=== PATIENT | female | born 1980 | race Caucasian/White ===

== ENCOUNTER 2020-10-15 04:15 | Emergency (ER) | payer MEDICAID, SELFPAY ==
[2020-10-15 04:18] VITALS: BP 138/90; PULSE 70; RESP 16; TEMP 36.4; O2SAT 98; BMI 45.7
--- NOTE | 2020-10-15 04:34 | ED.VIS.GEN ---
History of Present Illness Chief Complaint: Back Informant: Patient Narrative: For the last 3 days the patient has had right lower back pain. She does not member doing anything. When she bends or twist she has pain in her right lower back. Current severity is moderate. Hurts by laying flat bending or twisting or bending over. Relieved by standing straight up. She has been using Tylenol ice and heat as well as BenGay. She states she cannot function like this needs some stronger for pain. Patient is 35 weeks . She has had no complications with her . Denies any urinary symptoms. Past Medical History - Allergies and Home Meds Allergies/Adverse Reactions: Allergies Penicillins [PCN] Allergy (Verified 10/15/20 04:16) Hives Primary Care Physician: Care Physician,No Primary [Primary Care Provider] - Prior records reviewed: Yes Past Medical History: - - Reviewed Surgical History: - - Reviewed Smoking Status: Never smoker Alcohol: None Drugs: None Review of Systems General: Denies: Chills, Fever, Sweats Eyes: Denies: Visual changes - bilaterally, Diplopia ENT: Denies: Rhinorrhea, Sore throat Cardiovascular: Denies: Chest pain, Palpitations Respiratory: Denies: Dyspnea, Cough, Dyspnea on exertion Gastrointestinal: Denies: Abdominal pain, Nausea, Vomiting, Diarrhea, Melena, Hematochezia Genitourinary: Denies: Dysuria, Hematuria, Frequency Musculoskeletal: Reports: Back pain. Denies: Extremity Pain Skin: Denies: Rash, Wounds Neurological: Denies: Headache, Weakness, Numbness Physical Exam Vital Signs/Narrative: Vital Signs Temp Pulse Resp BP Pulse Ox 10/15/20 04:18 97.6 F L 70 16 138/90 H 98 General: Well nourished, Well developed, No Acute Distress Head: Normocephalic, Atraumatic Eyes: Perrl, EOMI ENT: Moist mucous membranes, No rhinorrhea Neck: Supple, Nontender Cardiovascular: Regular rate, Regular rhythm, No murmurs Respiratory: No distress, CTA bilaterally, Chest nontender Abdomen: Soft, Nontender, Normal bowel sounds, - - Patient appears Back: Normal Inspection, - - Point right lower paraspinal tenderness. Decreased range of motion secondary pain. Negative for: CVA tenderness, Spinal tenderness Extremities: Nontender, No edema Skin: Normal color, No rash Neurological: Alert, Oriented x3, Cranial nerves II-XII grossly intact, Normal Strength, Normal Sensation Psychological: Normal affect, Normal Mood Diagnostic/Tx/Re-eval - Medical Decision Making This time I feel the patient has musculoskeletal back strain. I discussed with her the low suspicion for kidney infection. Patient agrees. Will be given a short course of Percocet. She understands the risk of doing so in however she is in so much pain that she cannot bear doing other treatments at this time. Will be given a short course and follow-up as an outpatient. ED Disposition - Plan for ED Patient: Disposition: Home or Assisted Living Diagnosis: Back pain Instructions: Back Pain During Prescriptions: Oxycodone HCl/Acetaminophen [Percocet 5/325] 1 - 2 tab PO Q6H PRN PRN 3 Days #12 tab PRN Reason: Pain Prescription Printed Referrals: Care Physician,No Primary [Primary Care Provider] -
== END 2020-10-15 04:43 | disposition home or self-care (01) ==
LOC: ED 04:40
PROVIDERS: Emergency Provider Emergency Medicine
DX: M54.5 Low back pain (principal); O99.891 Other specified diseases and conditions complicating pregnancy; Z3A.35 35 weeks gestation of pregnancy
CPT/HCPCS: 99282

== ENCOUNTER → 2020-10-18 17:48 | Outpatient (CLI) | payer MEDICAID, SELFPAY ==
[2020-10-15 04:18] VITALS: BMI 45.7
[2020-10-18 18:02] LABS: Hematocrit 35.5 % (37-47); Hemoglobin 11.3 g/dL (12.0-15.0); Mean Corp Hgb Conc 31.8 g/dL (32-36); Mean Corpuscular Volume 87.9 fL (81-99); Mean Platelet Vol. 11.7 fl (6.2-12.0); Platelet Count 229 K/mm3 (150-450); RBC Distribution Width CV 15.2 % (11.6-14.6); RBC Distribution Width SD 48.3 fl (35.1-43.9); Red Blood Count 4.04 M/mm3 (4.2-5.4); White Blood Count 11.2 K/mm3 (4.4-11.0)
[2020-10-18 18:41] LABS: ALB/GLOB Ratio 0.6 RATIO (0.9-2.4); AST(SGOT) 8 U/L (15-37); Alanine Aminotransfer ALT/SGPT 13 U/L (13-56); Albumin, Serum 2.5 g/dL (3.2-5.0); Alkaline Phosphatase 104 U/L (45-117); Anion Gap 7 (5-15); BUN 10 mg/dL (7-18); BUN/Creat Ratio 15.6 RATIO (10-20); Calcium,Total 8.6 mg/dL (8.5-10.1); Chloride 105 mmol/L (98-107); Creatinine, Serum 0.64 mg/dL (0.55-1.02); EST Glomerular Filtration Rate 110 mL/min (>60); Est Glom Filt Rate - Afr Amer 133 mL/min (>60); Globulin 4.4 g/dL (2.2-4.2); Glucose 75 mg/dL (74-106); LDH 123 U/L (84-246); Potassium 4.2 mmol/L (3.5-5.1); Protein, Total 6.9 g/dL (6.4-8.2); Protein, Urine (Random) 25.9 mg/dL (<11.9); Protein:Creat Ratio 223 mg/g CRE (0-200); Sodium Level 136 mmol/L (136-145)
== END ==
LOC: LAB 17:49 → LABSPEC 10-19 07:35
PROVIDERS: Referring Provider Obstetrics & Gynecology; Visit Provider Obstetrics & Gynecology
DX: Z34.83 Encounter for supervision of other normal pregnancy, third trimester (principal)
CPT/HCPCS: 36415; 80053; 82570; 83615; 84156; 85027

== ENCOUNTER 2020-10-20 09:45 | Inpatient (IN) | payer MEDICAID, SELFPAY ==
[2020-10-20] VITALS (16 sets, daily range): BP systolic 123–161; BP diastolic 68–95; PULSE 50–78; RESP 18; TEMP 36.7–37.1; O2SAT 97–99; BMI 46.7
[2020-10-20] MEDS: Lactated Ringers 1,000 ML 50 ML IV (09:20)
--- NOTE | 2020-10-20 09:51 | HP.PCM_ITS ---
History and Physical Date of Admission: 10/20/20 ACOG ANTEPARTUM RECORD - HISTORY AND PHYSICAL (10/20/2020) Name: ROSALIA SHORT History of This : This is a 40-year-old Ab1 who presents to labor and delivery with what appears to be active labor. care has been uneventful except for a transfer from [facility] at 33 weeks and a history of delivery at 35 weeks gestation. OB Physician: IGNACIO 's Physician: DR. REYNOLD FISHER ...................................................................... : 1980 Age: 40 [address]: [address] [place] [address] Phone: [phone] Insurance Carrier: [employer] [id number] Emergency Contact: MINA SHORT/SPOUSE [phone] ...................................................................... Final THEO: 11/26/20 By Ultrasound: PARITY: (G-Total Pregnancies P-Fullterm,Premature,Induced AB,Spont AB, Ectopics, Multiple,Living) THEO CONFIRMATION: By LMP: 01/25/20 Final THEO: 11/26/20 OB PROBLEM LIST: Hx-chickenpox,anxiety/dep, PCOS, infertility, constip. bronchitis. Transfer from [facility] at 33 weeks. Allergic Penicillins. AMA Hx of 35wk PTD ALLERGIES: NKA Penicillins Hives and/or rash MEDICATIONS: One A Day Women's DHA 28 mg iron-800 mcg oral pack One pill by mouth once a day Pepcid 20 mg tablet Two pills by mouth twice a day Vitamin D3 125 mcg (5,000 unit) tablet One pill by mouth once a day SOCIAL HISTORY: Smoking - denies smoking Alcohol Use - None Diet - balanced Diet and water intake- main drink- several quarts. Exercise - minimal and not motivated Enc to walk 15-20 min day. Employer - unemployed Job Description - housewife Illicit Drug Use - None Sexual Activity - Residence - lives with and rent home Place of - [place] Spouse-Sig Other Name - Mina Spouse-Sig Other Occupation - hyperbaric welder diver Spouse-Sig Other Phone No - [phone] PRIOR DELIVERY HISTORY __ DEL DATE GEST LAB WT LB WT OZ TYPE ANES LABOR TX Sep 17 6 0 0 0 Sab None No February 35 24 5 15 Vag Epidural No Aug 26 38 6 9 6 Vag Epidural No ANTEPARTUM FLOW CHART VISIT GE RTC FU F F GA U U DATE WK MD WKS HT PN HR M SS BP ED WT GA GL D EF ST __ ____ ___ __ __ ___ __ __ __ ___ __ __ __ ___ __ 05 Oct MIHIR 1 35 V + + 152/98 1+ 283 tr - ANTEPARTUM NOTE(S): Oct 18 2020: see note COMPREHENSIVE ANTEPARTUM NOTE(S): Oct 18 2020: Rosalia is here for visit. Transfer of care to our facility. Relates that she has been having excruciating back pain. Points to R flank area around to abdomen. States this pain is getting much worse. Initially it was more at night but now it is all the time. She also reports h/a today. B/P taken by me was 152/98. LMT Oct 18 2020: 40yo at 34wk.3d with FINAL THEO: 11/26/20 by 7wk u/s arrives [facility] L [facility], she lives in [place]. PNP on records wnl, 1hr GTT 136 wnl. Previously with PTD at 35wk 1999 and Term 2012, no indication for progesterone. AMA, no indication for ASA at this time since it has not been started >26wk. Back pain seen in ER, given percocet has taken a few. Discussed risk of percocet in , pt states understanding. Back pain appears to be MSK, discussed warm compresses. Pt with elevated BP today, asymptomatic, for HELLP labs today. Last growth at [facility] 27wk 1539g 87% AC >97% HC 43%. Agrees to 39wk delivery based on above. For Growth u/s at next visit. 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 Mina, her husb is a hyperbaric welder diver. Rosalia is a transfer from [facility] as their L closed. She's a lifetime non smoker, non drinker w no street drug use past or present. She is allergic to penicillins. Her diet is balanced though she limits dairy, w no caffeine and 2-3 l of water daily. Exercise is minimal- enc to walk 15-20 min qd. Meds include a dye-free vit, Colace, Pepcid and Vit D 3. Past medical hx- anxiety/dep, PCOS, infertility, chickenpox, bronchitis. constipation of pg. Rosalia was on buspirone but DC' ed it upon realizing pg and feels well. Stress level is 1/5. Genetic Testing done prev w no high risk findings. Warning signs in pg discussed as well as wearing seatbelt low on her abd, importance of protein in her diet, reaching the office after hours w understanding voiced. Rosalia did the WP virtual tour. She needs proof of pg for WIC. Enc to get a flu shot. Enc to call w any concerns. Visit took one hour. Lisa SURESH. REVIEW OF SYSTEMS: GENERAL - Denies fever, or chills SKIN - Denies rash, new skin lesions, or change in moles EYES - Denies blurred vision, or change in visual acuity EARS - Denies ear pain, or difficulty hearing NOSE - Denies nasal congestion, discharge, or bleeding MOUTH - Denies sore throat, or difficulty swallowing NECK - Denies pain or swelling RESPIRATORY - Denies shortness of breath, cough, wheezing CARDIOVASCULAR - Denies palpitations, chest pain, orthopnea, PND, peripheral edema, syncope or claudication GASTROINTESTINAL - Denies nausea, vomiting, diarrhea, constipation, Denies abdominal pain, melena and or bright red blood GENITOURINARY - Denies dysuria, frequency of urination, urgency, or hesitancy MUSCULOSKELETAL - Denies joint or muscle pain, or back pain NEUROLOGICAL - Denies localized numbness, weakness, or tingling PSYCHIATRIC - Denies depression, anxiety, substance abuse or suicide attempts ENDOCRINE - Denies heat or cold intolerance, weight loss or gain, increasing thirst HEMATO-IMMUNOLOGIC - Denies easy bruising, bleeding, oral ulcerations or recurrent infections GENETICS SCREENING: Age 35+ years: Yes Thalassemia: No Neural Tube Defect: No Down Syndrome: No CARMELO-SACHS: No Sickle Cell Disease: No Hemophilia: No Musc. Dystrophy: No Cystic Fibrosis: No-declines screening Karnes Chorea: No Mental Retardation: No Fragile X: No Other genetic: No Other defects: No SABs/still births: Yes x1 Drugs since LMP: Yes INFECTION HISTORY: High risk AIDS: No High risk Hepatitis: No Exposed to TB: No Exposed to Herpes: No Rash/viral illness since LMP: No History of STD: No MENSTRUAL HISTORY: *Menses Regularity: IrregularFrequency: variableBCP's at Conception: NoMenarche (Age Onset): 17* PAST SUMMARY: PARITY: 1. Total Pregnancies............ 4 2. Full Term Pregnancies........ 1 3. Premature.................... 1 4. Abortions - Induced.......... 0 5. Abortions - Spontaneous...... 1 6. Ectopics..................... 0 7. Multiple Births.............. 0 8. Living Children.............. 2 PAST #1: Date of :.................. 02/21/00 Gestation Weeks:................ 35 Length of labor(hours):......... 24 Sex:............................ F Weight-lbs:............... 5 Weight-oz:................ 15 Type of Delivery:............... Vag Type of Anesthesia:............. Epidural Place of Delivery:.............. [place] Treatment of Labor?:.... No Comment: NO PAST #2: Date of :.................. 09/13/05 Gestation Weeks:................ 6 Length of labor(hours):......... 0 Sex:............................ UNKNOWN Weight-lbs:............... 0 Weight-oz:................ 0 Type of Delivery:............... Sab Type of Anesthesia:............. None Place of Delivery:.............. HOME Treatment of Labor?:.... No Comment: PAST #3: Date of :.................. 08/26/13 Gestation Weeks:................ 38 Length of labor(hours):......... 6 Sex:............................ M Weight-lbs:............... 9 Weight-oz:................ 6 Type of Delivery:............... Vag Type of Anesthesia:............. Epidural Place of Delivery:.............. [facility] Treatment of Labor?:.... No Comment: NO PHYSICAL EXAMINATION General Appearence: 40 yo female in no acute distress Vital Signs: AF, VSS Heart: RRR without rubs or gallops Lungs: CTA x 2 Breasts: deferred Abdomen: gravid Pelvis: Cervix: 3/80 with bulgy bag of water Presentation: cephalic Station: -1 Fetus: Size: AGA Movement: present Heart: present Labs for : ROSALIA SHORT since 03/01/2020 ORDER DATEIN DESCRIPTION VALUE UNITS RANGE A+ COMMENT LDH 10/18/20 NOTE Original Ordering Provider: Lakeshia Fisher LDH 123 U/L 84-246 Reviewed by [facility] METABOLIC PROFIL 10/18/20 NOTE Original Ordering Provider: Lakeshia Fisher GLU 75 mg/dL 74-106 Please note revised GLUCOSE reference range effective 11/15/2017. BUN 10 mg/dL 7-18 CREAT,SERUM 0.64 mg/dL 0.55-1.02 The validity of the calculated GFR AND GFRAA in patients over 70 years has not been determined. Clinical correlation is essential. EST GFR 110 mL/min >60 Non- GFR Calc EST GFR - AA 133 mL/min >60 GFR Calc BUN/CRE 15.6 RATIO 10-20 T PROT 6.9 g/dL 6.4-8.2 ALB 2.5 g/dL 3.2-5.0 L GLOB 4.4 g/dL 2.2-4.2 H A/G 0.6 RATIO 0.9-2.4 L CA 8.6 mg/dL 8.5-10.1 AST 8 U/L 15-37 L ALK P 104 U/L 45-117 ALT 13 U/L 13-56 T BILI 0.20 mg/dL 0.20-1.00 For patients on eltrombopag therapy, use of Dimension Pollock TBIL is not recommended. NA 136 mmol/L 136-145 K 4.2 mmol/L 3.5-5.1 CL 105 mmol/L 98-107 CO2 24.0 mmol/L 21.0-32.0 GAP 7 5-15 Reviewed by LAKESHIA PROTEIN+CREATININE RATIO,URINE 10/18/20 NOTE Original Ordering Provider: Lakeshia Fisher UR CREAT 116.00 mg/dL NO RANGE EST. PROTEIN,UR.RAN. 25.9 mg/dL <11.9 H PROT:CRE RATIO 223 mg/g CRE 0-200 H Reviewed by LAKESHIA CBC-COMPLETE BLOOD CNT NO DIFF 10/18/20 NOTE Original Ordering Provider: Lakeshia Fisher WBC 11.2 K/mm3 4.4-11.0 H RBC 4.04 M/mm3 4.2-5.4 L HGB 11.3 g/dL 12.0-15.0 L HCT 35.5 % 37-47 L MCV 87.9 fL 81-99 MCH 28.0 pg 27.0-32.0 MCHC 31.8 g/dL 32-36 L RDW CV 15.2 % 11.6-14.6 H RDW SD 48.3 fl 35.1-43.9 H PLT 229 K/mm3 150-450 MPV 11.7 fl 6.2-12.0 Reviewed by LAKESHIA CBC w/Diff 05/03/20 White Blood Cell Count 10.2 thous/mcl 3.8-10.8 Red Blood Cell Count 4.07 mill/mcl 3.90-5.20 Hemoglobin 11.7 g/dl 12.0-15.6 Hematocrit 33.7 % 35.0-46.0 MCV 82.9 FL 80.0-100.0 MCH 28.7 PG 27.0-33.0 MCHC 34.7 % 32.0-36.0 RDW 16.8 % 9.0-15.0 Platelet Count 213 thous/mcl 150-450 Reviewed by LAKESHIA Other 05/03/20 Unusual lab Panorama Low Risk Reviewed by LAKESHIA Initial OB Labs 05/03/20 Blood Type O Rh Type positive w Antibody Screen negative Negative Hemoglobin Initial OB 11.7 Hematocrit Initial OB 33.7 PLT 213 Rubella 15.3 immune Immune VDRL non reactive Non Reactive HBsAg not detected Negative HIV Test non reactive Negative w Reviewed by LAKESHIA Urine Culture 05/03/20 Urine Culture normal urogenital cristopher No growth Reviewed by LAKESHIA LEONE-Chlamydia 05/03/20 Chlamydia not detected Negative GC not detected No Growth Reviewed by LAKESHIA PAP Smear 04/18/20 PAP Test negative for squamous lesion or malignancy Normal Reviewed by LAKESHIA Impression /Plan: 34+ week intrauterine and apparent active labor. Steroids will be given. Preparations in progress for possible delivery.
[2020-10-20] MEDS: Oxytocin 30 units/NS 500 ml 30 UNITS/500 ML IV.SOLN 334 UNITS IV (10:09)
[2020-10-20 10:15] LABS: Absolute Neutrophil Count 8.6 X10^3/uL (2.0-7.7); Basophil# 0.04 X10^3/uL; Basophil% 0.4 % (0-1); Eosinophil# 0.03 X10^3/uL; Eosinophils% 0.3 % (0-5); Hematocrit 35.8 % (37-47); Hemoglobin 11.7 g/dL (12.0-15.0); Lymphocyte % 15.5 % (19-41); Mean Corp Hgb Conc 32.7 g/dL (32-36); Mean Corpuscular Volume 85.6 fL (81-99); Mean Platelet Vol. 12.5 fl (6.2-12.0); Monocyte# 0.48 X10^3/uL; Monocyte% 4.4 % (0-10); NRBC Flagged by Analyzer 0 % (0-5); Neutrophil # 8.64 X10^3/uL (2.7-7.7); Neutrophil % 78.9 % (47-70); Platelet Count 234 K/mm3 (150-450); RBC Distribution Width CV 15.1 % (11.6-14.6); RBC Distribution Width SD 47.1 fl (35.1-43.9); Red Blood Count 4.18 M/mm3 (4.2-5.4); White Blood Count 10.9 K/mm3 (4.4-11.0)
--- NOTE | 2020-10-20 10:28 | PCM.OPRPT ---
Vaginal Delivery Maternal Presentation: Active Labor Amniotic Membrane Rupture Type: Spontaneous Amniotic Fluid Description: - - Unruly Final THEO: 11/26/20 Final THEO Source: US <20 weeks Gestational age: 34 Weeks and 5 Days [place] doctor who attended delivery (if requested by OB): DaveChrystal - 34+ weeks gestation Date of Procedure: 10/20/20 Pre-Operative Diagnosis: 34+ week IUP Post-Operative Diagnosis: 34+ Week IUP, Possible Placental Abruption, Precipitous Delivery Type of Anesthesia: None Description of Procedure: Spontaneous precipitous vaginal delivery of a viable female with Apgars of 9/9 from an occiput anterior presentation with port wine colored amniotic fluid and potentially 15% of the placenta abrupted. No episiotomy or lacerations. Venous and arterial cord gases obtained. Delivery physician: Christiano Martinez MD. Presentation: Vertex Placental Delivery Description: Spontaneous Placenta Disposition: Sent to Pathology Percentage of Placenta Abruption: 15 Cord Vessel Description: 3 Vessels Cord Gases drawn per routine: ABG, VBG Cord Entanglement: None Estimated Blood Loss: 250 cc A gender: Female (1 minute): 9 (5 minute): 9 Episiotomy Description: None Laceration: None Medications given after delivery: IV Pitocin Complications: None
--- NOTE | 2020-10-20 10:33 | DCINST_ITS ---
<Christiano Martinez - Last Filed: 10/20/20 10:33> Discharge Diet: No Restrictions Discharge Activity: May Shower, May Take a Tub Bath May resume sexual activity in: 4-6 weeks Additional Activity Instructions:: Nothing in the vagina for 4-6 weeks. You may return to work/school in 6 weeks. Call your doctor if you observe: Inability to urinate, Inability to have a bowel movement, Using more than one pad per hour Additional Instructions: If you experience any of the following, contact your healthcare provider. * Bleeding that soaks a pad every hour for 2 hours * Fever 100.4 or higher * Unrelieved incision or abdominal pain * Swelling, redness, discharge or bleeding from your incision or episiotomy site * Your incision begins to separate * Problems urinating (including inability to urinate or burning while urinating). * Visual changes * Severe headache * Flu-like symptoms * Pain or redness in one of both of your breasts * Pain, warmth, tenderness or swelling in your legs, especially the calf area * Frequent nausea and vomiting * Symptoms of depression or anxiety If you experience any of the following, call 911 or go to the nearest Emergency Room. * Chest pain * Problems breathing * Seizure activity * Partial or complete paralysis of a body part, slurred speech, weakness or drooping of the face, or a sudden inability to walk or hold your balance Allergies/Adverse Reactions: Allergies Penicillins [PCN] Allergy (Verified 10/20/20 09:39) Hives Medications to take at Discharge Cholecalciferol (Vitamin D3) [D3-50] 1 tab PO QWEEK 10/15/20 Docusate Sodium [Colace] 100 mg PO BID 10/15/20 Esomeprazole Magnesium [Nexium] 20 mg PO DAILY 10/15/20 Please Follow Up With: nÁgel Antony MD - [phone] When: Call to make an appointment with your doctor in 6 weeks. Primary Care Physician: Care Physician,No Primary [Primary Care Provider] - Test Results: Test results from this visit will be discussed in further detail at your follow- up appointment, if applicable. <Ángel Antony - Last Filed: 10/21/20 07:26> Additional Instructions: If you experience any of the following, contact your healthcare provider. * Bleeding that soaks a pad every hour for 2 hours * Fever 100.4 or higher * Unrelieved incision or abdominal pain * Swelling, redness, discharge or bleeding from your incision or episiotomy site * Your incision begins to separate * Problems urinating (including inability to urinate or burning while urinating). * Visual changes * Severe headache * Flu-like symptoms * Pain or redness in one of both of your breasts * Pain, warmth, tenderness or swelling in your legs, especially the calf area * Frequent nausea and vomiting * Symptoms of depression or anxiety If you experience any of the following, call 911 or go to the nearest Emergency Room. * Chest pain * Problems breathing * Seizure activity * Partial or complete paralysis of a body part, slurred speech, weakness or drooping of the face, or a sudden inability to walk or hold your balance Test Results: Test results from this visit will be discussed in further detail at your follow- up appointment, if applicable.
--- NOTE | 2020-10-20 10:33 | PCM.DCVAG ---
<Christiano Martinez - Last Filed: 10/20/20 10:33> Discharge Diet: No Restrictions Discharge Activity: May Shower, May Take a Tub Bath May resume sexual activity in: 4-6 weeks Additional Activity Instructions:: Nothing in the vagina for 4-6 weeks. You may return to work/school in 6 weeks. Call your doctor if you observe: Inability to urinate, Inability to have a bowel movement, Using more than one pad per hour Additional Instructions: If you experience any of the following, contact your healthcare provider. Bleeding that soaks a pad every hour for 2 hours Fever 100.4 or higher Unrelieved incision or abdominal pain Swelling, redness, discharge or bleeding from your incision or episiotomy site Your incision begins to separate Problems urinating (including inability to urinate or burning while urinating). Visual changes Severe headache Flu-like symptoms Pain or redness in one of both of your breasts Pain, warmth, tenderness or swelling in your legs, especially the calf area Frequent nausea and vomiting Symptoms of depression or anxiety If you experience any of the following, call 911 or go to the nearest Emergency Room. Chest pain Problems breathing Seizure activity Partial or complete paralysis of a body part, slurred speech, weakness or drooping of the face, or a sudden inability to walk or hold your balance Allergies/Adverse Reactions: Allergies Penicillins [PCN] Allergy (Verified 10/20/20 09:39) Hives Medications to take at Discharge Cholecalciferol (Vitamin D3) [D3-50] 1 tab PO QWEEK 10/15/20 Docusate Sodium [Colace] 100 mg PO BID 10/15/20 Esomeprazole Magnesium [Nexium] 20 mg PO DAILY 10/15/20 Please Follow Up With: Ángel Antony MD - [phone] When: Call to make an appointment with your doctor in 6 weeks. Primary Care Physician: Care Physician,No Primary [Primary Care Provider] - Test Results: Test results from this visit will be discussed in further detail at your follow-up appointment, if applicable. <Ángel Antony - Last Filed: 10/21/20 07:26> Additional Instructions: If you experience any of the following, contact your healthcare provider. Bleeding that soaks a pad every hour for 2 hours Fever 100.4 or higher Unrelieved incision or abdominal pain Swelling, redness, discharge or bleeding from your incision or episiotomy site Your incision begins to separate Problems urinating (including inability to urinate or burning while urinating). Visual changes Severe headache Flu-like symptoms Pain or redness in one of both of your breasts Pain, warmth, tenderness or swelling in your legs, especially the calf area Frequent nausea and vomiting Symptoms of depression or anxiety If you experience any of the following, call 911 or go to the nearest Emergency Room. Chest pain Problems breathing Seizure activity Partial or complete paralysis of a body part, slurred speech, weakness or drooping of the face, or a sudden inability to walk or hold your balance Test Results: Test results from this visit will be discussed in further detail at your follow-up appointment, if applicable.
--- NOTE | 2020-10-20 11:15 | NURSING ---
baby transferred to scn at this time, see transport papers for any details
[2020-10-20 11:41] LABS: Red Blood Cells-Urine 0 SEEN /hpf (0-5)
[2020-10-20 11:53] LABS: Color, Urine Yellow (Yellow); Glucose, Dipstick Normal (Normal); Ketone-Dipstick Negative (Negative); Leukocyte Esterase-Dipstick 100 /ul (Negative); Nitrite-Dipstick Negative (Negative); Occult Blood-Urine 25 /ul (Negative); Protein-Dipstick 30 mg/dl (Negative); Urine Bilirubin Dipstick Negative (Negative); Urine Clarity Cloudy (Clear); Urine Urobilinogen Normal (Normal)
[2020-10-20 11:55] LABS: Squamous Epithelial Cells - UA 25-50 SEEN /hpf (5-10); White Blood Cells 0-5 SEEN /hpf (0-5)
[2020-10-20 11:56] LABS: Bacteria 3+ /hpf (None Seen); Mucous, Urine 1+ /hpf (<or=2+); Protein, Urine (Random) 55.2 mg/dL (<11.9); Protein:Creat Ratio 241 mg/g CRE (0-200)
[2020-10-20 12:03] LABS: AST(SGOT) 11 U/L (15-37); Alanine Aminotransfer ALT/SGPT 11 U/L (13-56); Creatinine, Serum 0.69 mg/dL (0.55-1.02); EST Glomerular Filtration Rate 101 mL/min (>60); Est Glom Filt Rate - Afr Amer 122 mL/min (>60); Uric Acid 5.4 mg/dL (2.6-6.0)
[2020-10-20 12:11] LABS: International Normalized Ratio 1.1; Partial Thromboplast Time 27.4 Seconds (24.1-36.2); Prothrombin Time (Protime)PT. 13.4 SECONDS (11.7-14.9)
[2020-10-20] MEDS: 0.9% Saline Lock 10 ML Syringe IV (12:25)
[2020-10-21 00:27] VITALS: BP 117/65; PULSE 82; RESP 15; TEMP 36.4
[2020-10-21 05:00] VITALS: BP 133/83; PULSE 70; RESP 18; TEMP 36.6
[2020-10-21] MEDS: Ibuprofen 600 MG Tablet PO (05:58)
--- NOTE | 2020-10-21 07:25 | PCM.PN.OB ---
Subjective: No overnight complaints. Pain well controlled. Did not sleep well overnight secondary to hospital setting. - Physical Exam Vitals/I&O's: Vital Signs Temp Pulse Resp BP Pulse Ox 97.9 F 70 18 133/83 H 98 10/21/20 05:00 10/21/20 05:00 10/21/20 05:00 10/21/20 05:00 10/20/20 12:02 Oxygen Delivery Method Room Air Weight: 281 lb 3.2 oz Body Mass Index (BMI) 46.7 Intake and Output for Last 24 Hours 10/19/20 10/20/20 10/21/20 23:59 23:59 23:59 Intake Total 1340.83 / 1340.83 Output Total 450 / 450 Balance 890.83 / 890.83 General: Alert, Oriented x3, Cooperative, No apparent distress HEENT: Atraumatic, PERRLA, Normocephalic Oral: Moist Mucosa Neck: Supple, No JVD Abdomen: Soft, Non Tender, - - Uterus firm and below umbilicus Extremities: No clubbing, No cyanosis, No edema Neurological: Neuro grossly intact Psych/Mental Status: Normal Affect, Appropriate, Alert and oriented to time, place, person, mood and affect Microbiology Past 72 Hours 10/20/20 09:55 Mucosa - Nose SARS-CoV-2 Antigen (Rapid) - Final Laboratory Results 10/20/20 09:55: WBC 10.9, RBC 4.18 L, Hgb 11.7 L, Hct 35.8 L, MCV 85.6, MCH 28.0, MCHC 32.7, RDW Std Deviation 47.1 H, RDW Coeff of Shoaib 15.1 H, Plt Count 234, MPV 12.5 H, Immature Gran % (Auto) 0.500, Neut % (Auto) 78.9 H, Lymph % (Auto) 15.5 L, [place] % (Auto) 4.4, Eos % (Auto) 0.3, Baso % (Auto) 0.4, Absolute Neuts (auto) 8.6 H, Absolute Lymphs (auto) 1.70, Nucleated RBC % 0 10/20/20 09:55: Blood Type O POSITIVE, Antibody Screen NEGATIVE 10/20/20 09:55: Creatinine Cancelled, Estim Creat Clear Calc Cancelled, Est GFR (MDRD) Af Amer Cancelled, Est GFR (MDRD) Non-Af Cancelled, Uric Acid Cancelled, AST Cancelled, ALT Cancelled 10/20/20 11:25: WBC Cancelled, Corrected WBC Cancelled, RBC Cancelled, Hgb Cancelled, Hct Cancelled, MCV Cancelled, MCH Cancelled, MCHC Cancelled, RDW Std Deviation Cancelled, RDW Coeff of Shoaib Cancelled, Plt Count Cancelled, MPV Cancelled, Diff Path Review Cancelled 10/20/20 11:25: PT 13.4, INR 1.1, APTT 27.4 10/20/20 11:25: Creatinine 0.69, Estim Creat Clear Calc 98.50, Est GFR (MDRD) Af Amer 122, Est GFR (MDRD) Non-Af 101, Uric Acid 5.4, AST 11 L, ALT 11 L 10/20/20 11:25: Urine Color Yellow, Urine Clarity Cloudy, Urine pH 6.0, Ur Specific [place] 1.020, Urine Protein 30 H, Urine Glucose (UA) Normal, Urine Ketones Negative, Urine Occult Blood 25 H, Urine Nitrite Negative, Urine Bilirubin Negative, Urine Urobilinogen Normal, Ur Leukocyte Esterase 100 H, Urine RBC 0 SEEN, Urine WBC 0-5 SEEN, Ur Squamous Epith Cells 25-50 SEEN, Urine Bacteria 3+, Urine Mucus 1+ 10/20/20 11:25: U Random Total Protein 55.2 H, Urine Creatinine 229.00, Protein/Creatinin Ratio 241 H Current Medications Acetaminophen (Acetaminophen 500 Mg Tablet) 1,000 mg PO Q8H PRN PRN PRN Reason: Pain Score 1-3 Bisacodyl (Bisacodyl 10 Mg Suppository) 10 mg RECTAL UD PRN PRN Reason: If no BM Dibucaine (Dibucaine 30 Gm Tube) 1 applic TOPICAL TID PRN PRN; Protocol PRN Reason: Discomfort Hydrocortisone (Hydrocortisone 2.5% Crm) 1 applic TOPICAL TID PRN PRN; Protocol PRN Reason: Discomfort Ibuprofen (Ibuprofen 600 Mg Tablet) 600 mg PO Q6H PRN PRN PRN Reason: Pain Score 1-3 Last Admin: 10/21/20 05:58 Dose: 600 mg Documented by: Measles/Mumps/Rubella Vaccine Live (Measles,Mumps&Rubella Vaccine 0.5 Ml Vial) 0.5 ml SC .ONCE ONE Stop: 10/21/20 10:01 Last Admin: 10/20/20 11:49 Dose: Not Given Documented by: Methylergonovine Maleate (Methylergonovine 0.2 Mg/Ml Ampul) 0.2 mg IM X1 PRN PRN Reason: Excess bleeding/uterine atony Ondansetron HCl (Ondansetron 4 Mg/2 Ml Vial) 4 mg IV Q4H PRN PRN PRN Reason: Nausea Oxycodone HCl (Oxycodone 5 Mg Tablet) 5 - 10 mg PO Q4H PRN PRN PRN Reason: Pain Score 4-10 Senna/Docusate Sodium (Senna/Docusate Sodium 1 Tablet) 1 - 2 tablet PO DAILY PRN PRN PRN Reason: Constipation Simethicone (Simethicone 80 Mg Tablet) 80 mg PO PCHS PRN PRN Reason: Indigestion/Stomach pain Sodium Chloride (0.9% Saline Lock 10 Ml Syringe) 5 - 15 ml IV UD PRN PRN Reason: SALINE FLUSH Last Admin: 10/20/20 12:25 Dose: 10 ml Documented by: Zolpidem Tartrate (Zolpidem Tartrate 5 Mg Tablet) 5 mg PO QHS PRN PRN PRN Reason: Insomnia Medical Necessity - Tobacco Use Smoking Status: Never smoker Assessment/Plan day 1. 34-week delivery spontaneous. Patient wishes to go home understands visitation for special care nursery. Okay to discharge home.
[2020-10-21 09:30] VITALS: BP 122/82; PULSE 58; RESP 16; TEMP 36.3
[2020-10-21 12:30] VITALS: BP 137/82; PULSE 58; RESP 18; TEMP 36.7
--- NOTE | 2020-10-21 12:42 | CASEMGMT ---
Social Work Labor and Delivery Unit Consult received for mother of baby (MOB) with history of anxiety and on medications prior to . Chart reviewed and found that baby was delivered at 34 weeks, transferred into the [facility] after delivery. For continuity of care of families admitted to the [facility], this sports book writer also provides social work services to the [facility]. Noted in the care record that MOB was prescribed short course of Percocet on 10.15.2020 from the [facility] ED; confirmed in [facility] medical records that MOB was indeed prescribed said prescription. Updated floor grinder due to infant's potential 3rd trimester exposure to opiates. This sports book writer presented to MOB's room for assessment, for both [facility] and for the [facility]. Found that MOB was already discharged and went home with the father of baby (FOB). This sports book writer will attempt to meet with MOB at a later date when back on the [facility] to visit with the baby. -BRENNAN Black, TIRE BEADER MAKER
--- NOTE | 2020-10-24 14:57 | CASEMGMT ---
Social Work Assessment Labor and Delivery Unit Patient Address: [address], [place] [address] Phone number: [phone] Date of Referral: 10/20/2020 Time of Referral: 1525 Referred By: Dr. Christiano Martinez Date of Intervention: 10/24/2020 Time of Intervention: 1400 Reason for Referral: Maternal history of anxiety and on medication prior to History obtained from: Medical records and mother of baby (MOB) Rosalia Mars Household composition: MOB, father of baby (FOB) and their older son. Plan for baby to reside in this residence at discharge. Patient's parent/guardian status: DAMI is a 40-year-old female, to the FOB Joe Mars who is 45. Parents have been since 2006, and now have 2 children together. Minor children include: Johny Mars (born 08/2013) and baby Deirdre Mars (born 1.7.21). DAMI had a daughter prior to this marriage, born in February 2000. FOB brought to children of his own to the marriage and those children are also adults. MOB denies any form of abuse in relationship with the FOB. Medical History: DAMI is 4, para 2 now 3 after delivering Vicky. Uncertain when care actually started during this as MOB was a transfer of care at 33 weeks to [facility]. MOB reports transfer of care late in due to [facility] labor and delivery unit closing and the only other option was a hospital farther away. No records from the prior [facility] were on MOB chart. [place] baby was delivered on 10/20/2020 via precipitous delivery. 34 weeks gestation. 5 pounds 16 ounces. Apgars 9 and 9 at 1 and 5 minutes of life. Educational Status: DAMI is a high school graduate. Denies any concerns with reading, writing, or learning comprehension. 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 Plan is for MOB to stay home now that the baby is born, which will mean 1 income for the home. Supplies: MOB reports to have all needed supplies for the baby including a bassinet for sleeping, clothing, diapers, wipes, car seat. Plans to bottlefeed the baby and reports ability to purchase bottles and formula when the baby is ready for discharge. Childcare/Caregiver(s): DAMI will be the primary caregiver of the baby, with assistance from FOB when he is home. Transportation: No concerns. Programs/Agencies Involved: DAMI has Medicaid as a secondary insurance through job and family services. Reports to be aware of WIC and plans to get this in the future. Had help me grow with her son. At this point agrees to information on help me grow. MOB has history, but not current, with the counseling center for counseling. Children Services/Legal Issues: MOB denies any type of legal history. Denies any past or current involvement with children services. Behavioral Health Issues: Mental Health History: DAMI has a history of anxiety with medications prior to . It is reported that MOB was on BuSpar and quit upon realization of . During assessment, the MOB reports that she has tried various medications in the past and has not liked any of them or how they made her feel. MOB reports a couple of years ago she went to counseling at the counseling center and like this okay. Substance Use History: MOB denies any alcohol, marijuana, heroin, meth, cocaine or other illicit drug use history during or prior to . MOB does endorse getting a short course of pain prescription in the week leading up to delivery, due to severe back pain. MOB reports believe that her body was telling her she was about to go into labor. MOB reports that she took 1 pill from this prescription. Noted in record the MOB had a prescription for Percocet, 12 tablets, written on 10/15/2020. DAMI does not use tobacco. Family History: MOB denies any family history. Drug Screens: No drug screens performed for the mother of baby. Meconium testing has been performed on the baby. Family/Social Stressors: Unplanned but accepted . DAMI left job due to being in the Covid pandemic, and not being comfortable with her job role and being potentially exposed to Covid. Remote learning for part of the school year for her older son. Support Systems: DAMI reports that the FOB is a good support person. MOB mother who lives 40 minutes away as a support. DAMI also endorses a brother and [id number] who live right next door and then a good friend from work. Depression/Shaken Baby/Safe Sleeping: educational material provided on all topics. ASSESSMENT: Met with the MOB at the baby's bedside, the baby remains a patient inside the [facility] special care nursery. Educated MOB to this life underwriter's role as the hospital social insurance analyst, and the social insurance analyst assigned to special care nursery. Educated to reason for assessment. MOB cooperative with talking to social insurance analyst. Reports to have all needed supplies to care for the baby, and to have adequate support at home. MOB denies any abuse of the short course prescribed opiate prescription she received prior to delivery, and denies any type of history of substance use issues. MOB reports to feel her emotional health is doing okay. Does admit that having a baby in special care is stressful. MOB does endorse several healthy coping skills including making lists, prioritizing needs, and tackling one thing at a time. MOB reports counseling was very helpful and MOB developing some coping mechanisms for her anxiety. Did educate MOB to her increased risk for depression and/or anxiety in relation to personal history, and baby in the NICU setting. Safe Plan of Care for related to substance use: MOB denies any type of illicit substance use. Reports only took 1 pill of the prescription that was given. PLAN: MOB has been discharged home. Resources were provided this date however on [facility] social service agencies, and a mood and anxiety disorder packet which also includes resources. No other services requested or indicated. -LOUISE Black MSW *Information documented in this assessment generated with [facility]*
== END 2020-10-21 12:35 | disposition home or self-care (01) | DRG 560 ==
LOC: WPOUT 09:47 → WP 09:47
PROVIDERS: Admitting Provider Obstetrics & Gynecology; Referring Provider Obstetrics & Gynecology; Visit Provider Obstetrics & Gynecology
DX: O62.3 Precipitate labor (principal); O60.14X0 Preterm labor third trimester with preterm delivery third trimester, not applicable or unspecified; Z37.0 Single live birth; O45.93 Premature separation of placenta, unspecified, third trimester; Z3A.34 34 weeks gestation of pregnancy; Z34.83 Encounter for supervision of other normal pregnancy, third trimester
CPT/HCPCS: 36415; 59050; 80053; 81001; 82565; 82570; 83615; 84156; 84450; 84460; 84550; 85025; 85027; 85610; 85730; 86850; 86900; 86901; 87426; 99218; J7120; A4216; G0378; J0702

== ENCOUNTER 2020-11-01 11:04 | Inpatient (IN) | payer MEDICAID, SELFPAY ==
[2020-10-20 09:36] VITALS: BMI 46.7
[2020-11-01] VITALS (53 sets, daily range): BP systolic 107–171; BP diastolic 56–92; PULSE 44–75; RESP 15–16; TEMP 36.5–36.8; O2SAT 93–100; BMI 42.5
[2020-11-01] MEDS: NIFEdipine 10 MG Capsule PO (11:10)
[2020-11-01 11:28] LABS: Hematocrit 41.1 % (37-47); Hemoglobin 13.8 g/dL (12.0-15.0); Mean Corp Hgb Conc 33.6 g/dL (32-36); Mean Corpuscular Hgb 28.4 pg (27.0-32.0); Mean Corpuscular Volume 84.6 fL (81-99); Mean Platelet Vol. 11.1 fl (6.2-12.0); Platelet Count 335 K/mm3 (150-450); RBC Distribution Width CV 13.8 % (11.6-14.6); RBC Distribution Width SD 42.7 fl (35.1-43.9); Red Blood Count 4.86 M/mm3 (4.2-5.4); White Blood Count 9.3 K/mm3 (4.4-11.0)
[2020-11-01 11:33] LABS: AST(SGOT) 14 U/L (15-37); Alanine Aminotransfer ALT/SGPT 28 U/L (13-56); Creatinine, Serum 0.99 mg/dL (0.55-1.02); EST Glomerular Filtration Rate 66 mL/min (>60); Est Glom Filt Rate - Afr Amer 80 mL/min (>60); Estimated Creatinine Clearance 68.65 ml/min; Uric Acid 8.3 mg/dL (2.6-6.0)
[2020-11-01] MEDS: Metoclopramide 10 MG/2 ML Vial 5 MG IV (11:39)
[2020-11-01 11:41] LABS: Partial Thromboplast Time 23.3 Seconds (24.1-36.2); Prothrombin Time (Protime)PT. 12.7 SECONDS (11.7-14.9)
[2020-11-01 12:44] LABS: Bacteria 0 SEEN /hpf (None Seen); Mucous, Urine 0 SEEN /hpf (<or=2+); Red Blood Cells-Urine 0 SEEN /hpf (0-5); White Blood Cells 0 SEEN /hpf (0-5)
[2020-11-01 12:46] LABS: Color, Urine Straw (Yellow); Glucose, Dipstick Normal (Normal); Ketone-Dipstick Negative (Negative); Leukocyte Esterase-Dipstick Negative /ul (Negative); Nitrite-Dipstick Negative (Negative); Occult Blood-Urine 50 /ul (Negative); Protein-Dipstick Negative (Negative); Urine Bilirubin Dipstick Negative (Negative); Urine Clarity Clear (Clear); Urine Urobilinogen Normal (Normal)
[2020-11-01 12:52] LABS: Squamous Epithelial Cells - UA 0-5 SEEN /hpf (5-10)
[2020-11-01] MEDS: NIFEdipine 30 MG Tablet PO (12:59)
--- NOTE | 2020-11-01 13:15 | PCM.HP.OB ---
- Problem List (1) Preeclampsia in period Status: Acute History Date of Admission: 11/01/20 Final THEO Source: US <20 weeks History of this : This is a 40 year-old, G 4 P1213 s/p 34 5/7 week on 10/20/20 presents with 3 days of headache and elevated BPs. She had a precipitous delivery on 10/20/20 concerning for placental abruption with elevated blood pressures noted however labs were not concerning for preeclampsia. Her course was otherwise unremarkable and she was discharged to home on PPD#1. She presented to the office today with 3 days of a headache, not improved with Tylenol and had BPs to 160s/100s. She was sent to L&D for further evaluation and labs. Denies prior history of hypertension in past pregnancies or outside of . Hx -Transfer of care at 33 weeks from [facility] with 1 visit in [place] -AMA -Allergic to [facility] Medical History: Medical History (Last Updated 11/01/20 @ 20:[address] Shaina Santillan MD) Anxiety F41.9 Depression F32.9 Polycystic ovarian syndrome E28.2 Allergies Penicillins [PCN] Allergy (Verified 10/20/20 09:39) Hives Home Medications: Home Medications Cholecalciferol (Vitamin D3) [D3-50] 1 tab PO QWEEK 10/15/20 Docusate Sodium [Colace] 100 mg PO BID 10/15/20 Esomeprazole Magnesium [Nexium] 20 mg PO DAILY 10/15/20 Smoking Status: Never smoker Alcohol: None History Past Pregnancies: Past Pregnancies Delivery Date Name GA/ Weeks Outcome Route Wt Sex Labor Length Anesthesia Delivery Location Provider FOB 02/2000 35 Living 5lb5oz F 24 Epidural [place] 09/2005 6 SAB SAB 08/2013 38 Living 9lb6oz M 6 Epidural [place] 10/2020 34.5 ?Abruption, HTN, [facility] Labs: Mom's Microbiology 11/01/20 12:35 Urine, Clean Catch Urine Culture - Pending 11/01/20 11:25 Interface Orders SARS-CoV-2 Antigen (Rapid) - Final Mom's Problem List Problem Status Onset Code Preeclampsia in period Acute O14.95 Mom's Labs & Results 11/01/20 11/01/20 11/01/20 11:10 11:10 11:10 WBC 9.3 RBC 4.86 Hgb 13.8 Hct 41.1 MCV 84.6 MCH 28.4 MCHC 33.6 RDW Std Deviation 42.7 RDW Coeff of Shoaib 13.8 Plt Count 335 MPV 11.1 PT 12.7 INR 1.0 APTT 23.3 L Creatinine 0.99 Estim Creat Clear Calc 68.65 Est GFR (MDRD) Af Amer 80 Est GFR (MDRD) Non-Af 66 Uric Acid 8.3 H AST 14 L ALT 28 Urine Color Urine Clarity Urine pH Ur Specific [place] Urine Protein Urine Glucose (UA) Urine Ketones Urine Occult Blood Urine Nitrite Urine Bilirubin Urine Urobilinogen Ur Leukocyte Esterase Urine RBC Urine WBC Ur Squamous Epith Cells Urine Bacteria Urine Mucus 11/01/20 12:35 WBC RBC Hgb Hct MCV MCH MCHC RDW Std Deviation RDW Coeff of Shoaib Plt Count MPV PT INR APTT Creatinine Estim Creat Clear Calc Est GFR (MDRD) Af Amer Est GFR (MDRD) Non-Af Uric Acid AST ALT Urine Color Straw Urine Clarity Clear Urine pH 7.0 Ur Specific [place] 1.010 Urine Protein Negative Urine Glucose (UA) Normal Urine Ketones Negative Urine Occult Blood 50 H Urine Nitrite Negative Urine Bilirubin Negative Urine Urobilinogen Normal Ur Leukocyte Esterase Negative Urine RBC 0 SEEN Urine WBC 0 SEEN Ur Squamous Epith Cells 0-5 SEEN Urine Bacteria 0 SEEN Urine Mucus 0 SEEN Social History Alleged father susie Hx Smoking No Smoking Status Never smoker Physical Exam Vitals: Vital Signs Temp Pulse Resp BP Pulse Ox 97.7 F L 70 16 116/66 95 11/01/20 19:34 11/01/20 20:29 11/01/20 20:29 11/01/20 20:29 11/01/20 20:29 General: Alert, Oriented x3, Cooperative, - - flat affect HEENT: Atraumatic, Normocephalic Cardiovascular: Regular rate, Regular Rhythm, Normal S1, Normal S2 Lungs: Clear to auscultation, Normal air movement, No rhonchi, No wheeze, No rales Abdomen: Soft, Non Tender, Non-Distended Extremities:: No edema, No tenderness/swelling Neurological: Deep Tendon Reflexes 2+/4 and Symmetrical, Neuro grossly intact, - - no clonus Assessment/Plan All Active Problems Preeclampsia in period (Acute) This is a 40 year-old, G [4], P [1213] with preeclampsia. -BPs improved with Nifedipine PO - difficulty obtaining IV access initially, however, remain mildly elevated. -Given persistent headache and elevated BPs advised magnesium therapy for sz ppx - reviewed indications, risks, benefits, side effects. Pt reports understanding. -Patient and given opportunity to ask questions and questions answered to their satisfaction.
[2020-11-01] MEDS: 0.9% Saline Lock 10 ML Syringe IV ×4 (14:00→18:39)
--- NOTE | 2020-11-01 14:00 | NURSING ---
Attempt made to start magnesium bolus at this time. IV flushed with 10cc normal saline and patency established. Medication verified with Phyllis Lau RN at bedside. Medication started. Patient noted discomfort in hand upon start of administration. IV site monitored, negative for signs of infiltration. Patient continues to complain of pain. Infusion stopped. Phyllis Lau attempted x1 to obtain additional IV access, attempt unsuccessful. DEMETRICE Roman also attempted x1 to establish IV access and was unsuccessful. This RN attempted to establish IV access x1 and was unsuccessful. Current IV flushed again and again patency established without complaint of discomfort. IV magnesium verified with DEMETRICE Roman and started again at 1421. Within 4 minutes patient complains of pain throughout arm with magnesium infusing. Infusion stopped. IV assessed and patency confirmed, no redness or swelling noted. At 1424 Nursing melter supervisor open hearth furnace was called to assist with IV access, will send systems support engineer. at 1434 Dr. Viry Mckeon office called and message left regarding situation with update on patient condition and blood pressures. At 1437 bag filler notified of situation and that this RN waiting on systems support engineer for assistance.
[2020-11-01] MEDS: Magnesium Sulfate 4gm/100mL 4 GM/100 ML IV.SOLN. IV (15:27)
[2020-11-01] MEDS: Magnesium Sulfate 20 GM/500 ML BAG IV (15:58)
[2020-11-01] MEDS: Acetaminophen 500 MG Tablet 1000 MG PO (17:26)
[2020-11-01] MEDS: Ondansetron 4 MG/2 ML Vial IV (18:39)
[2020-11-01] MEDS: Lactated Ringers 500 ML 999 ML IV (19:06)
--- NOTE | 2020-11-01 20:34 | PCM.PN.BLA ---
Progress Note PROGRESS NOTE Headache resolved. Reports legs feel wobbly and heavy. Nausea and lightheadedness improved. No abdominal pain. Vital Signs Temp Pulse Resp BP BP Pulse Ox 11/01/20 20:29 70 16 116/66 95 11/01/20 20:28 71 116/66 11/01/20 19:34 97.7 F L 66 15 110/56 L 95 11/01/20 19:30 67 110/56 L 11/01/20 18:55 53 L 111/60 11/01/20 18:54 53 L 111/60 11/01/20 18:40 98.1 F 51 L 16 112/63 98 11/01/20 17:29 98.0 F 72 16 135/85 H 100 11/01/20 17:28 71 135/85 H 11/01/20 17:27 98.1 F 100 11/01/20 17:01 98.1 F 72 131/74 H 98 11/01/20 17:00 98.1 F 72 16 131/74 H 98 11/01/20 16:28 67 16 121/71 H 96 11/01/20 16:23 71 97 11/01/20 16:18 74 96 11/01/20 16:17 73 119/68 11/01/20 16:16 70 16 118/66 96 11/01/20 16:13 66 95 11/01/20 16:09 67 94 11/01/20 16:03 71 96 11/01/20 16:00 98.2 F 11/01/20 15:59 68 126/73 H 11/01/20 15:58 98.2 F 68 16 126/73 H 96 11/01/20 15:53 66 98 11/01/20 15:48 65 97 11/01/20 15:47 61 132/76 H 11/01/20 15:42 61 16 132/76 H 97 11/01/20 15:33 98.2 F 59 L 97 11/01/20 15:32 57 L 138/80 H 11/01/20 15:27 98.3 F 60 16 137/74 H 97 11/01/20 15:11 50 L 137/74 H 11/01/20 14:51 48 L 144/69 H 11/01/20 14:32 54 L 156/91 H 11/01/20 14:11 50 L 137/83 H 11/01/20 13:52 49 L 167/82 H 11/01/20 13:32 44 L 161/92 H 11/01/20 13:11 51 L 146/81 H 11/01/20 12:52 49 L 156/84 H 11/01/20 12:31 53 L 137/74 H 11/01/20 12:11 62 137/75 H 11/01/20 11:51 65 125/62 H 11/01/20 11:46 75 130/64 H 11/01/20 11:31 54 L 156/81 H 11/01/20 11:10 50 L 153/79 H 11/01/20 10:56 57 L 163/90 H 11/01/20 10:47 57 L 171/84 H 99 GEN - NAD, AAOx3 CV - RRR RESP - CTAB NEURO - + 2 b/l LE DTRs, no clonus EXT - no edema or calf tenderness Vital Signs Temp 97.7 F L 11/01/20 19:34 Pulse 70 11/01/20 20:29 Resp 16 11/01/20 20:29 BP 116/66 11/01/20 20:29 Pulse Ox 95 11/01/20 20:29 Intake & Output 10/30/20 10/31/20 11/01/20 23:59 23:59 23:59 Intake Total 2030.01 / 2030.01 Output Total 1300 / 1300 Balance 730.01 / 730.01 Weight: 115.8 kg Intake: Oral 1250 / 1250 Intake, IV Amount 780.01 / 780.01 20GM/500ML 20 gm In 500 ml @ 2 180.01 / 180.01 GM/HR 50 mls/hr IV .Q10H FRANCIS Rx #:[id number] Lactated Ringers 1,000 ML @ 999 500 / 500 mls/hr IV .Q31M FRANCIS Rx#: [id number] Magnesium Sulfate 4gm/100mL 4 100 / 100 GM/100 ML4 gm In 100 ml @ 300 mls/hr IV X1 ONE Rx#:[id number] Output: Urine 1300 / 1300 A/P: 40yo s/p on 10/20/20 readmitted with preeclampsia on magnesium - s/p bolus for symptomatic relative hypotension and improving. Normotensive now. - No evidence of magnesium toxicity STROKE Vital Signs/Narrative: Vital Signs Temp Pulse Resp BP BP Pulse Ox 11/01/20 20:29 70 16 116/66 95 11/01/20 20:28 71 116/66 11/01/20 19:34 97.7 F L 66 15 110/56 L 95 11/01/20 19:30 67 110/56 L 11/01/20 18:55 53 L 111/60 11/01/20 18:54 53 L 111/60 11/01/20 18:40 98.1 F 51 L 16 112/63 98 11/01/20 17:29 98.0 F 72 16 135/85 H 100 11/01/20 17:28 71 135/85 H 11/01/20 17:27 98.1 F 100 11/01/20 17:01 98.1 F 72 131/74 H 98 11/01/20 17:00 98.1 F 72 16 131/74 H 98
--- NOTE | 2020-11-01 20:36 | NURSING ---
2034 at to assess pt and talk about plan of care. Plan to observe and continue mag infusion 12-24H.
[2020-11-02] VITALS (16 sets, daily range): BP systolic 110–138; BP diastolic 61–84; PULSE 60–73; RESP 15–18; TEMP 36.2–36.6; O2SAT 96–99
[2020-11-02] MEDS: Magnesium Sulfate 20 GM/500 ML BAG IV (00:43)
[2020-11-02] MEDS: 0.9% Saline Lock 10 ML Syringe IV ×2 (03:49→03:50)
--- NOTE | 2020-11-02 06:51 | NURSING ---
0600 lab called to draw morning lab work
[2020-11-02 07:00] LABS: Absolute Lymphocyte Count 2.23 X10^3/uL (0.83-4.51); Basophil# 0.08 X10^3/uL; Basophil% 0.8 % (0-1); Eosinophil# 0.23 X10^3/uL; Eosinophils% 2.3 % (0-5); Hematocrit 42.1 % (37-47); Hemoglobin 13.6 g/dL (12.0-15.0); Lymphocyte # 2.23 X10^3/ul (4.0); Lymphocyte % 22.3 % (19-41); Mean Corp Hgb Conc 32.3 g/dL (32-36); Mean Corpuscular Hgb 27.4 pg (27.0-32.0); Mean Corpuscular Volume 84.7 fL (81-99); Mean Platelet Vol. 10.2 fl (6.2-12.0); Monocyte# 0.43 X10^3/uL; Monocyte% 4.3 % (0-10); NRBC Flagged by Analyzer 0 % (0-5); Neutrophil % 70.1 % (47-70); Platelet Count 325 K/mm3 (150-450); RBC Distribution Width SD 42.9 fl (35.1-43.9); Red Blood Count 4.97 M/mm3 (4.2-5.4)
[2020-11-02 07:44] LABS: ALB/GLOB Ratio 0.8 RATIO (0.9-2.4); AST(SGOT) 12 U/L (15-37); Alanine Aminotransfer ALT/SGPT 26 U/L (13-56); Albumin, Serum 3.2 g/dL (3.2-5.0); Alkaline Phosphatase 107 U/L (45-117); Anion Gap 4 (5-15); BUN 13 mg/dL (7-18); BUN/Creat Ratio 12.4 RATIO (10-20); Calcium,Total 7.1 mg/dL (8.5-10.1); Chloride 107 mmol/L (98-107); Creatinine, Serum 1.05 mg/dL (0.55-1.02); EST Glomerular Filtration Rate 62 mL/min (>60); Est Glom Filt Rate - Afr Amer 75 mL/min (>60); Estimated Creatinine Clearance 64.73 ml/min; Globulin 4.2 g/dL (2.2-4.2); Glucose 99 mg/dL (74-106); Protein, Total 7.4 g/dL (6.4-8.2); Sodium Level 139 mmol/L (136-145); Uric Acid 7.9 mg/dL (2.6-6.0)
--- NOTE | 2020-11-02 08:02 | PN.OBGYN_ITS ---
Patient Problems: Active and Suspected Problems (Last Updated 11/01/20 @ 20:[address] Shaina Santillan MD) Preeclampsia in period (Acute) Subjective: Feels better without magnesium. Headache resolved. Denies nausea, vomiting, lightheadedness, vision changes, abdominal pain, heavy lochia. Was out of bed and voided without difficulty. Legs feel steady. Objective: AVSS - Physical Exam Vitals/I&O's: Vital Signs Temp Pulse Resp BP Pulse Ox 97.2 F L 65 16 136/84 H 98 11/02/20 04:37 11/02/20 05:56 11/02/20 05:56 11/02/20 05:56 11/02/20 04:37 Oxygen Delivery Method Room Air Weight: 115.8 kg Body Mass Index (BMI) 42.5 Intake and Output for Last 24 Hours 10/31/20 11/01/20 11/02/20 23:59 23:59 23:59 Intake Total 2726.68 / 2726.68 400.00 / 400.00 Output Total 2300 / 2300 800 / 800 Balance 426.68 / 426.68 -400.00 / -400.00 General: Alert, Oriented x3, Cooperative, No apparent distress HEENT: Atraumatic, Normocephalic Lungs: Clear to auscultation, Normal air movement Cardiovascular: Regular rate, Regular Rhythm, Normal S1, Normal S2 Abdomen: Soft, Non Tender, Non-Distended Extremities: No edema, No Calf Tenderness Neurological: Neuro grossly intact Psych/Mental Status: Normal Affect, Appropriate, Alert and oriented to time, place, person, mood and affect Microbiology Past 72 Hours 11/01/20 11:25 Interface Orders SARS-CoV-2 Antigen (Rapid) - Final Laboratory Results 11/01/20 11:10: WBC 9.3, RBC 4.86, Hgb 13.8, Hct 41.1, MCV 84.6, MCH 28.4, MCHC 33.6, RDW Std Deviation 42.7, RDW Coeff of Shoaib 13.8, Plt Count 335, MPV 11.1 11/01/20 11:10: Creatinine 0.99, Estim Creat Clear Calc 68.65, Est GFR (MDRD) Af Amer 80, Est GFR (MDRD) Non-Af 66, Uric Acid 8.3 H, AST 14 L, ALT 28 11/01/20 11:10: PT 12.7, INR 1.0, APTT 23.3 L 11/01/20 12:35: Urine Color Straw, Urine Clarity Clear, Urine pH 7.0, Ur Specific [place] 1.010, Urine Protein Negative, Urine Glucose (UA) Normal, Urine Ketones Negative, Urine Occult Blood 50 H, Urine Nitrite Negative, Urine Bilirubin Negative, Urine Urobilinogen Normal, Ur Leukocyte Esterase Negative, Urine RBC 0 SEEN, Urine WBC 0 SEEN, Ur Squamous Epith Cells 0-5 SEEN, Urine Bacteria 0 SEEN, Urine Mucus 0 SEEN 11/02/20 06:54: WBC 10.0, RBC 4.97, Hgb 13.6, Hct 42.1, MCV 84.7, MCH 27.4, MCHC 32.3, RDW Std Deviation 42.9, RDW Coeff of Shoaib 14.0, Plt Count 325, MPV 10.2, Immature Gran % (Auto) 0.200, Neut % (Auto) 70.1 H, Lymph % (Auto) 22.3, [place] % (Auto) 4.3, Eos % (Auto) 2.3, Baso % (Auto) 0.8, Absolute Neuts (auto) 7.0, Absolute Lymphs (auto) 2.23, Nucleated RBC % 0 11/02/20 06:54: Sodium 139, Potassium 4.0, Chloride 107, Carbon Dioxide 28.0, Anion Gap 4 L, BUN 13, Creatinine 1.05 H, Estim Creat Clear Calc 64.73, Est GFR (MDRD) Af Amer 75, Est GFR (MDRD) Non-Af 62, BUN/Creatinine Ratio 12.4, Glucose 99, Uric Acid 7.9 H, Calcium 7.1 L, Total Bilirubin 0.40, AST 12 L, ALT 26, Alkaline Phosphatase 107, Total Protein 7.4, Albumin 3.2, Globulin 4.2, Albumin/Globulin Ratio 0.8 L Current Medications Acetaminophen (Acetaminophen 500 Mg Tablet) 1,000 mg PO Q8H PRN PRN PRN Reason: HEADACHE Last Admin: 11/01/20 17:26 Dose: 1,000 mg Documented by: Docusate Sodium (Docusate Sodium 100 Mg Capsule) 100 mg PO BID [facility] Last Admin: 11/01/20 19:39 Dose: Not Given Documented by: Calcium Gluconate 1 gm/ N/A 10 mls @ 2 mls/min IV X1 PRN PRN Reason: Magnesium Toxicity Magnesium Sulfate (20gm/500ml) 20 gm in 500 mls @ 50 mls/hr IV .Q10H FRANCIS; Protocol Last Infusion: 11/02/20 03:30 Dose: Infused Documented by: Labetalol HCl (Labetalol (Prefilled) 20 Mg/4 Ml) 20 mg IV X1 PRN PRN Reason: Elevated BP Labetalol HCl (Labetalol (Prefilled) 20 Mg/4 Ml) 20 mg IV Q10M PRN PRN PRN Reason: Elevated BP Midazolam HCl (Midazolam 2 Mg/2 Ml Syringe) 2 mg IV X1 PRN PRN Reason: Seizure Activity Nifedipine (Nifedipine 10 Mg Capsule) 20 mg PO X1 PRN PRN Reason: Elevated BP Nifedipine (Nifedipine 10 Mg Capsule) 20 mg PO X1 PRN PRN Reason: Elevated BP Nifedipine (Nifedipine 30 Mg Tablet) 30 mg PO DAILY@1200 FRANCIS Ondansetron HCl (Ondansetron 4 Mg/2 Ml Vial) 4 mg IV Q4H PRN PRN PRN Reason: NAUSEA Last Admin: 11/01/20 18:39 Dose: 4 mg Documented by: Pantoprazole Sodium (Pantoprazole Sodium 20 Mg Tablet) 20 mg PO DAILY FRANCIS Prochlorperazine Edisylate (Prochlorperazine 10 Mg/2 Ml Vial) 10 mg IV Q6H PRN PRN PRN Reason: NAUSEA Sodium Chloride (0.9% Saline Lock 10 Ml Syringe) 10 ml IV PRN PRN PRN Reason: Saline lock Last Admin: 11/02/20 03:50 Dose: 10 ml Documented by: Medical Necessity - Tobacco Use Smoking Status: Never smoker Assessment/Plan All Active Problems (Last Updated 11/01/20 @ 20:[address] Shaina Santillan MD) Preeclampsia in period (Acute) This is a 40 year-old, G [4], P [1213] with preeclampsia. -BPs improved with Nifedipine PO -s/p 12 hours magnesium -Observe BPs this am to titrate Nifedipine -Consider d/c home this afternoon/evening
--- NOTE | 2020-11-02 09:14 | NURSING ---
0810 reflexes +2 normal; no clonus; no epigastric pain; no headache
[2020-11-02] MEDS: Docusate Sodium 100 MG Capsule PO (09:59)
[2020-11-02] MEDS: Pantoprazole Sodium 20 MG Tablet PO (09:59)
[2020-11-02] MEDS: NIFEdipine 30 MG Tablet PO (12:05)
--- NOTE | 2020-11-02 12:29 | DCINST_ITS ---
- Discharge Diagnoses Current Active Problems: Current Active and Chronic Problems (Last Updated 11/01/20 @ 20:[address] Shaina Santillan MD) Preeclampsia in period (Acute) Reason(s) for Visit for Discharge Instructions: Hypertension/Preeclampsia You will use the following diet at home:: No restrictions Your food should be the consistency of: Regular Discharge Activity: Return to Normal Activity Allergies/Adverse Reactions: Allergies Penicillins [PCN] Allergy (Verified 10/20/20 09:39) Hives Medications to take at Discharge Cholecalciferol (Vitamin D3) [D3-50] 1 tab PO QWEEK 10/15/20 Docusate Sodium [Colace] 100 mg PO BID 10/15/20 Esomeprazole Magnesium [Nexium] 20 mg PO DAILY 10/15/20 Nifedipine [Nifedipine ER] 30 mg PO DAILY #30 tab.er.24 11/02/20 The following prescriptions were given: Nifedipine [Nifedipine ER] 30 mg PO DAILY #30 tab.er.24 Transmission Status: Pending to [id number] Primary Care Physician: Care Physician,No Primary [Primary Care Provider] - Test Results: Test results from this visit will be discussed in further detail at your follow- up appointment, if applicable. Please Follow Up With: Ángel Antony MD - BP check When: 7-10 days
--- NOTE | 2020-11-02 13:20 | CASEMGMT ---
Social Work Labor and Delivery Unit Noted that patient/mother of baby (MOB) was a readmission for preeclampsia. This curriculum writer worked with MOB during admission and while baby was admitted to the [facility] at [place]. Checked in with MOB today and passed some information on regarding the baby and insurance issues with the SCN. Supportive listening offered. MOB reports to be ready for discharge and hoping this happens today, as well as excited to be able to take baby home from the SCN. Checked in on MOB's mood. MOB reports it was hard to be readmitted as a patient and not be allowed to see the baby in SC[facility] last night, but understands need for own self care. MOB reports periodic episodes of crying. Discussed time frame that this is common in mothers, and that if crying continues or becomes distressing to reach out to the doctor. MOB reports at current time, to be excited to potentially take the baby home today. Father of baby also present in the room and actively participating in conversation. MOB was previously provided with information on mood and anxiety disorders, and a [facility] resource list. MOB denies any other needs at this time. During social work visit, RN came in and reported MOB is able to discharge home today. 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
--- NOTE | 2020-11-02 13:36 | NURSING ---
1356 dc to home
== END 2020-11-02 13:35 | disposition home or self-care (01) | DRG 561 ==
LOC: WPOUT 11:07 → WP 11:08
PROVIDERS: Admitting Provider Obstetrics & Gynecology; Referring Provider Obstetrics & Gynecology; Visit Provider Obstetrics & Gynecology
DX: O14.95 Unspecified pre-eclampsia, complicating the puerperium (principal)
CPT/HCPCS: 36415; 80053; 81001; 82565; 84450; 84460; 84550; 85025; 85027; 85610; 85730; 87086; 87088; 87426; 94760; 99218; J7120; A4216; G0378; J2405

== ENCOUNTER → 2021-06-16 10:16 | Outpatient (CLI) | payer MEDICAID, SELFPAY | PROVIDERS: Referring Provider Physician Assistant Surgical; Visit Provider Physician Assistant Surgical | DX: R51.9 Headache, unspecified (principal) | CPT/HCPCS: 87635; U0005; U0003 ==

== ENCOUNTER 2021-10-25 12:26 | Outpatient (CLI) | payer MEDICAID, SELFPAY | END 2021-10-25 23:59 | disposition short-term general hospital (02) | LOC: LABSPEC 12:26 | PROVIDERS: Visit Provider Obstetrics & Gynecology | DX: N39.0 Urinary tract infection, site not specified (principal) | CPT/HCPCS: 87086; 87088 ==

== ENCOUNTER → 2023-10-01 | Outpatient (CLI) | payer MEDICAID, SELFPAY ==
--- NOTE | 2023-10-01 09:44 | NEURO ---
NCS and/or EMG Patient Report Ordering Doctor: Mayco Prieto DATE OF SERVICE: 10/01/23 Clinical Summary: This is a 43 year old female presenting with complaints of numbness and tingling in the hands/fingers bilaterally. She denies having any neck pain or any numbness, tingling, or pain that radiates from the neck down either arm. This EMG/NCS was performed to evaluate for right/left carpal tunnel syndrome and/or ulnar neuropathies. Nerve Conduction Studies Summary: There was a left ulnar motor conduction velocity drop greater than 10 m/s across the elbow. Otherwise, nerve conduction studies performed in the bilateral upper extremities were within normal ranges. Needle Examination Summary: Needle examination of select muscles of the bilateral upper extremities was normal. Impression: There is electrodiagnostic evidence of the following - 1) Mild, left ulnar mononeuropathy at the elbow, with demyelinating features There is no electrodiagnostic evidence of a right/left median mononeuropathy at the wrist (carpal tunnel syndrome). Multi Select Codes Neurology Neurology Interp Codes: 24525-20 Musc test done w/n test comp (interp) (2) and 56236-49 Nrv cndj test 13/> studies (interp)
== END | disposition home or self-care (01) ==
LOC: PSN 08:35
PROVIDERS: PCP Registered Nurse; Referring Provider Orthopaedic Surgery Sports Medicine; Visit Provider Orthopaedic Surgery Sports Medicine
DX: G56.03 Carpal tunnel syndrome, bilateral upper limbs (principal)
CPT/HCPCS: 95886; 95913